=== PATIENT | male | born 1995 | race Hispanic/Latino ===

== ENCOUNTER 2019-05-18 05:52 | Observation (INO) | payer OTHER ==
[2019-05-16 10:13] LABS: BASOPHILS % (AUTO) 0.4 % (0.0-5.0); HEMATOCRIT 43.2 % (42-54); LYMPHOCYTES % (AUTO) 20.7 % (21.0-51.0); MEAN CORPUSCULAR HEMOGLOBIN 31.2 pg (27.0-33.0); MEAN CORPUSCULAR HGB CONC 34.3 g/dL (32.0-36.0); MEAN CORPUSCULAR VOLUME 90.9 fL (79-99); MONOCYTES % (AUTO) 9.6 % (3.0-13.0); PLATELET COUNT (AUTO) 227 K/uL (130-400); RED BLOOD CELL COUNT(AUTO) 4.75 MIL/uL (4.50-6.20); RED CELL DISTRIBUTION WIDTH 11.7 % (11.0-15.5); WHITE BLOOD COUNT (AUTO) 9.1 K/uL (4.8-10.8)
[2019-05-16 10:26] LABS: INR 0.99 (0.85-1.15); PROTHROMBIN TIME 10.4 SEC (9.6-11.6)
[2019-05-16 10:30] LABS: POTASSIUM 3.9 mmol/L (3.5-5.1)
[2019-05-16 10:32] VITALS: BP 112/67
[2019-05-16 11:05] LABS: PARTIAL THROMBOPLASTIN TIME 27.5 SEC (26.3-35.5)
[~2019-05-18] VITALS: Ht 180.3 cm; Wt 92.7 kg
[2019-05-18] VITALS (13 sets, daily range): BP systolic 105–121; BP diastolic 54–74
[~2019-05-18 05:52] MED LIST: SODIUM CHLORIDE 0.9% 1000ML 1,000 ML IV SCH
--- NOTE | 2019-05-18 06:05 | NUR ---
PRE OP PT ARRIVED AMBULATORY IN NO DISTRESS SPOUSE AT SIDE. PT ORIENTED TO ROOM AND CALL LIGHT. PT DOES HAVE SOME NASAL DRAINAGE THAT HE REPORTS DUE TO ALLERGIES. PTS BED IN LOWEST POSITION, CALL LIGHT WITH IN REACH AND PT INSTRUCTED TO CALL FOR ASSISTANCE. PT VOICED UNDERSTANDING Addendum: 05/18/19 at 0714 by JANE CAREY RN RN Amended: Links added.
[2019-05-18] MEDS ORDERED: LIDOCAINE HCL 2% 20ML ONE ×3 (07:20→08:32)
[2019-05-18] MEDS ORDERED: MIDAZOLAM HCL 1 MG/ML 2ML VIAL ONE ×2 (07:20→08:31)
[2019-05-18] MEDS ORDERED: MEPERIDINE-PF 25 MG/ML SYG ONE ×2 (07:20→08:31)
--- NOTE | 2019-05-18 07:21 | NUR ---
HYPNOTHERAPIST PT TAKEN VIA BED BY FAYE REA RN TO HYPNOTHERAPIST. PT IN NO DISTRESS.
[2019-05-18] MEDS ORDERED: HEPARIN SODIUM 1000UNIT/ML 10ML VIAL ONE (07:45)
[2019-05-18] MEDS ORDERED: ISOPROTERENOL HCL 0.2 MG/ML AMP/VIAL/BAG ONE (07:59)
[2019-05-18] MEDS ORDERED: ADENOSINE 3 MG/ML 2ML VIAL IV ONE ×2 (09:14→09:24)
[2019-05-18] MEDS ORDERED: IOHEXOL-350 50ML VIAL IV ONE (09:41)
[2019-05-18] MEDS ORDERED: ASPIRIN 325MG EC TAB 325 MG TABLET.DR PO SCH (10:15)
--- NOTE | 2019-05-18 10:40 | NUR ---
post received pt from [facility] , s/ p svt ablation, see post cath assessment. vs stable on arrival. pt awake and alert in bed,no distress noted. pt denied any pain or discomforts. family at bedside. pt/spouse instructed to keep bedrest for 3 hrs . to call nurse for any assistance needed . call light within reach. Dr. Escalona spoke to patient' s spouse about procedure outcomes.
--- NOTE | 2019-05-18 13:53 | NUR ---
ACTIVITY UP TO CHAIR WITH STANDBY ASSIST OF 1. GAIT STEADY. CATH SITE W/O SIGNS OF BLEEDING;PERCLOSE DRESSING CLEAN, DRY, AND INTACT; SITE SOFT, NON-TENDER.
--- NOTE | 2019-05-18 15:15 | NUR ---
REPORT REPORT GIVEN TO BRENDEN GIFFORD RN USING SBAR. VERBALIZED UNDERSTANDING.
--- NOTE | 2019-05-18 17:20 | NUR ---
PATIENT TRANSFERRED TO ROOM 203 FROM DAY PATIENT. PATIENT AAOX3, RESPIRATIONS UNLABORED. FEMORAL SITES WITH DRESSING DRY/INTACT. PATIENT LEFT IN ROOM WITH DUSTIN HENSON AND FAMILY MEMBERS AT BEDSIDE.
--- NOTE | 2019-05-18 17:30 | NUR ---
TRANSFER PATIENT ARRIVED TO FLOOR FROM PACU. S/P ABLATION. PATIENT IS AAOX4. NO SIGNS OF DISTRESS. DENIES CHESTPAIN.
[2019-05-19] VITALS: BP 114/56
[2019-05-19 03:42] VITALS: BP 99/57
[2019-05-19 03:55] LABS: BASOPHILS % (AUTO) 0.3 % (0.0-5.0); HEMATOCRIT 41.3 % (42-54); LYMPHOCYTES % (AUTO) 18.8 % (21.0-51.0); MEAN CORPUSCULAR HEMOGLOBIN 31.2 pg (27.0-33.0); MEAN CORPUSCULAR HGB CONC 34.9 g/dL (32.0-36.0); MEAN CORPUSCULAR VOLUME 89.6 fL (79-99); MONOCYTES % (AUTO) 9.7 % (3.0-13.0); NEUTROPHILS % (AUTO) 62.6 % (40.0-77.0); PLATELET COUNT (AUTO) 214 K/uL (130-400); RED BLOOD CELL COUNT(AUTO) 4.61 MIL/uL (4.50-6.20); RED CELL DISTRIBUTION WIDTH 11.5 % (11.0-15.5); WHITE BLOOD COUNT (AUTO) 8.9 K/uL (4.8-10.8)
[2019-05-19 04:02] LABS: CREATININE 1.3 mg/dL (0.5-1.5)
[2019-05-19 07:00] VITALS: BP 108/51
--- NOTE | 2019-05-19 07:30 | NUR ---
AM ASSESSMENT PT LAYING IN BED, HOB ELEVATED 30 DEGREES, RESTING. SPOUSE @ BEDSIDE. A/O X 3. NO SOB. NO DISTRESS NOTED. DENIES CHEST PAIN OR DISCOMFORT. DENIES PALPITATIONS. TELE: SR. DENIES N/V AND/OR DIARRHEA. BILATERAL GROIN DSG DRY & INTACT. NO BLEEDING. NO HEMATOMA NOTED. BLE PINK & WARM TO TOUCH. UP AD MADELINE. INSTRUCTED TO CALL FOR ASSISTANCE. CALL JUAN W/IN REACH.
[2019-05-19] MEDS ORDERED: CETIRIZINE HCL 5 MG TABLET PO SCH (09:00)
[2019-05-19] MEDS ORDERED: FLUTICASONE PROPIONATE 50MCG/SPRAY 16 GM BOTTLE EN SCH (09:00)
[2019-05-19] MEDS ORDERED: ASPIRIN 325MG EC TAB 325 MG TABLET.DR PO SCH (09:00)
[2019-05-19 11:00] VITALS: BP 108/55
--- NOTE | 2019-05-19 13:20 | NUR ---
DISCHARGE VERBAL & WRITTEN DISCHARGE INSTRUCTIONS REVIEWED & GIVEN TO PT & SPOUSE. QUESTIONS ENCOURAGED & CLARIFIED. PROPER CARE & ACTIVITY AFTER CARDIAC ABLATION REVIEWED. NO NEW PRESCRIBED MEDICATIONS. F/U APPT INFO REVIEWED. TELE SHERLY REMOVED. IV DC'D @ THIS TIME. PT & SPOUSE TO GATHER PERSONAL BELONGINGS. WILL NOTIFY STAFF WHEN READY TO BE TAKEN TO PRIVATE VEHICLE.
--- NOTE | 2019-05-19 13:40 | NUR ---
DISCHARGE PT TAKEN TO PRIVATE VEHICLE VIA WC BY Blas OSORIO PCP, ACCOMPANIED BY SPOUSE. NO DISTRESS NOTED.
== END 2019-05-19 13:40 | disposition home or self-care (01) ==
LOC: DAH 05:52 → DAHIP 05:53 → DAH 05:53 → 2AH 17:43
PROVIDERS: ADMIT Internal Medicine; ATTEND Internal Medicine
DX: I47.1 Supraventricular tachycardia (principal)
CPT/HCPCS: 36415 ×2; 80048 ×2; 85025 ×2; 85610; 85730; 93005; 93613; 93621; 93623; 93653; A4215; A4216; A4221; A4222; A4223 ×3; A4606; A4649 ×2; A4663; C1730 ×4; C1732; C1760; C1894 ×6; G0378 ×20; J0153 ×2; J1644 ×3; J2175 ×2; J2250 ×2; J3490 ×3; J7030; Q9967; 99156; 99157